=== PATIENT | female | born 1980 | race American Indian/Alaskan Native ===

== ENCOUNTER 2018-03-16 07:20 | Emergency (ER) | payer OTHER ==
[2018-03-16 07:33] VITALS: BP 132/78
[2018-03-16 08:04] LABS: Basophils # (Auto) 0.1 K/mm3 (0.0-0.1); Basophils % (Auto) 1.1 % (0.0-1.8); Eosinophils # (Auto) 0.1 K/mm3 (0.0-0.4); Eosinophils % (Auto) 1.4 % (0.0-4.3); Hematocrit 38.3 % (30.3-42.9); Hemoglobin 12.7 gm/dl (10.1-14.3); Lymphocytes # (Auto) 1.5 K/mm3 (1.2-5.4); Mean Corpuscular HGB Conc 33 % (30-34); Mean Corpuscular Hemoglobin 28 pg (28-32); Mean Corpuscular Volume 85 fl (79-97); Monocytes # (Auto) 0.5 K/mm3 (0.0-0.8); Platelet Count 306 K/mm3 (140-440); Red Blood Count 4.49 M/mm3 (3.65-5.03); Red Cell Distribution Width 14.8 % (13.2-15.2)
[2018-03-16 08:14] LABS: Bilirubin,Urine NEG (Negative); Blood,Urine NEG (Negative); Color,Urine Yellow (Yellow); Mucus,Urine FEW /HPF; Protein,Urine <15 mg/dL mg/dL (Negative); Urobilinogen,Urine < 2.0 mg/dL (<2.0); WBC,Urine < 1.0 /HPF (0.0-6.0)
[2018-03-16 08:29] LABS: Alanine Aminotransferase 13 units/L (7-56); Albumin 4.3 g/dL (3.9-5); BUN/Creatinine Ratio 20; Blood Urea Nitrogen 14 mg/dL (7-17); Calcium 9.4 mg/dL (8.4-10.2); Hemolysis Index 5; Lipase 27 units/L (13-60)
[2018-03-16] MEDS ORDERED: STADOL IV PRN (09:42)
[2018-03-16] MEDS ORDERED: COMPAZINE IV ONE (09:43)
--- NOTE | 2018-03-16 09:50 | Emergency Department Report ---
ED Abdominal Pain HPI - General Chief Complaint: Abdominal Pain Stated Complaint: PAIN ON RT SIDE OF STOMACH Time Seen by Provider: 03/16/18 09:23 Source: patient Mode of arrival: Ambulatory Limitations: No Limitations - History of Present Illness Initial Comments: Previously healthy 38-year-old woman with isolated right upper quadrant and right side pain which awakened her from her sleep at about 0500 hrs., one hour prior to arrival. Pain is more or less constant, aching, without any significant radiation, but also without belching or passing flatus. She has no known history of gallbladder disease, has not had any urinary difficulties, and no nausea or vomiting. She has had some dietary indiscretion, has been eating some increase in fried foods over her normal, but otherwise has no other departure from her routine, no systemic symptoms, and no other known exposures. Past medical history is one of good general health, patient's last menstrual period was February 27, lasting for 5 days, was normal. Patient has not had any dysuria, she has not had any back pain. - Related Data Previous Rx's Medication Instructions Recorded Last Taken Type HYDROcodone/APAP 5-325 [[place] 1 - 2 each PO Q6HR PRN #15 tablet 03/16/18 Unknown Rx 5-325 mg TAB] Ibuprofen [Motrin 600 MG tab] 600 mg PO Q8H PRN #21 tablet 03/16/18 Unknown Rx Ondansetron [Zofran ODT TAB] 4 mg PO Q8HR PRN #10 tab.rapdis 03/16/18 Unknown Rx Allergies Allergy/AdvReac Type Severity Reaction Status Date / Time shellfish derived Allergy Swelling Verified 03/16/18 07:28 sulfa Allergy Hives Uncoded 03/16/18 07:28 ED Review of Systems ROS: Stated complaint: PAIN ON RT SIDE OF STOMACH Other details as noted in HPI ED Past Medical Hx - Past Medical History Additional medical history: EXERCISED INDUCED ASTHMA/ JOINT PAIN - Surgical History Additional Surgical History: TOSNILS/ RIGHT BREAST BIOPSY - Social History Smoking Status: Never Smoker Substance Use Type: Marijuana - Medications Home Medications: Home Medications Medication Instructions Recorded Confirmed Last Taken Type HYDROcodone/APAP 5-325 [[place] 1 - 2 each PO Q6HR PRN #15 tablet 03/16/18 Unknown Rx 5-325 mg TAB] Ibuprofen [Motrin 600 MG tab] 600 mg PO Q8H PRN #21 tablet 03/16/18 Unknown Rx Ondansetron [Zofran ODT TAB] 4 mg PO Q8HR PRN #10 tab.rapdis 03/16/18 Unknown Rx ED Physical Exam - General Limitations: No Limitations ED Course Vital Signs 03/16/18 07:28 Temperature 36.6 C Pulse Rate 76 Respiratory 18 Rate Blood Pressure 132/78 O2 Sat by Pulse 97 Oximetry - Reevaluation(s) Reevaluation #1: 03/16/18 12:16 Patient reports significant improvement in discomfort, even without any pain medication, which she was reluctant to take, after reviewing possible side effects on the Internet. Despite this, her pain has subsided by about half, she is resting much more comfortably. She wishes to go home, treat her discomfort at home, and will be given work excuse for the next couple days. ED Medical Decision Making - Lab Data Result diagrams: 03/16/18 07:46 03/16/18 07:46 - Medical Decision Making This previously healthy 38-year-old woman has had acute onset of significant right upper quadrant discomfort, with tenderness in the right upper quadrant, but with also tenderness in the right costovertebral area. However, gallbladder ultrasound was unremarkable, showing no signs of stone or sludge, no pericolic inflammation or fluid, but with minor findings of mild enlargement of the right kidney. Laboratory evaluation was normal, urinalysis was essentially negative with only approximately 2 red cells, no white cells, no bacteria. This would be suggestive of possible kidney stone, which patient has had no history of. There is no clear-cut evidence in either direction for patient's source of discomfort, but she is clearly stable for discharge home, will be treated symptomatically. [place] the [place], and with improvement now, I expect full resolution over the course of the weekend. If she has any persistent pain, she should have repeat evaluation. Patient will be treated symptomatically with ibuprofen for the time being, hydrocodone for more pain, and to return to the emergency department for severe exacerbation. - Differential Diagnosis kidney stone, cholecystitis, gastroenteritis, urinary tract infection Critical Care Time: No Critical care attestation.: If time is entered above; I have spent that time in minutes in the direct care of this critically ill patient, excluding procedure time. ED Disposition Clinical Impression: Right upper quadrant abdominal pain of unknown etiology Disposition: [id number] TO HOME OR SELFCARE Is pt being admited?: No Does the pt Need Aspirin: No Condition: Stable Instructions: Abdominal Pain (ED) Additional Instructions: The cause of your pain today in the right upper quadrant is not clear. Laboratory evaluation was normal, urinalysis was also essentially normal, and ultrasound examination showed no signs of gallbladder disease, but there was findings of mild enlargement of the right kidney, which could be a sign of a kidney stone. In any case, her pain has improved, and your stable for discharge home. We recommended taking ibuprofen, 600 mg at a time, up to 3 times a day for the next several days for minor discomfort. We are prescribing hydrocodone, or [place], for more significant pain, and you can take one tablet every 4-6 hours as needed for pain, and you may take an occasional double dose if you have severe pain. You may also take ondansetron, which is a dissolving tablet placed under the tongue if you have any nausea as well. If you have persistent severe exacerbation of pain, we recommend that you return to the emergency department for repeat evaluation and further testing. Rest over the Weekend, and see your doctor for recheck if you're not fully improved by the beginning of next week. Prescriptions: HYDROcodone/APAP 5-325 [[place] 5-325 mg TAB] 1 - 2 each PO Q6HR PRN #15 tablet PRN Reason: Pain Ibuprofen [Motrin 600 MG tab] 600 mg PO Q8H PRN #21 tablet PRN Reason: Pain Ondansetron [Zofran ODT TAB] 4 mg PO Q8HR PRN #10 tab.rapdis PRN Reason: Nausea Forms: Work/School Release Form(ED) Time of Disposition: 12:22
--- NOTE | 2018-03-16 10:56 | Ultrasound Report ---
ULTRASOUND ABDOMEN LIMITED: TECHNIQUE: Transabdominal ultrasound with color Doppler interrogation. HISTORY: right upper quadrant abdominal pain. COMPARISON: none. FINDINGS: LIVER: Normal. BILIARY SYSTEM: Normal. PANCREAS: Normal. RIGHT KIDNEY: Minimal right hydronephrosis versus urinary stasis is identified. No evidence for focal right renal lesion or nephrolithiasis. PROXIMAL AORTA: Normal. ASCITES: None. IMPRESSION: Minimal right hydronephrosis is suspected. Please correlate with the patient's clinical presentation.
[2018-03-16] MEDS ORDERED: MOTRIN PO ONE (12:47)
== END 2018-03-16 12:54 | disposition home or self-care (01) ==
LOC: ED 07:20
DX: R10.11 Right upper quadrant pain (principal); F12.10 Cannabis abuse, uncomplicated; Z91.013 Allergy to seafood
CPT/HCPCS: 36415; 76705; 80053; 81001; 83690; 84703; 85025; 99284; J0780